=== PATIENT | female | born 1945 | race Caucasian/White ===

== ENCOUNTER 2019-06-25 23:24 | Emergency (ER) | payer OTHER, SELFPAY ==
[2019-06-25 23:55] VITALS: BP 149/86; PULSE 92; RESP 16; O2SAT 97
--- NOTE | 2019-06-26 00:03 | DI.RAD.S_ITS ---
PROCEDURE: XR CHEST 1V INDICATIONS: cough TECHNIQUE: One view of the chest was acquired. COMPARISON: Lung bases on CT abdomen and pelvis 10/27/2010. FINDINGS: Surgical changes and devices: None. Lungs and pleura: No consolidation. No pleural effusions or pneumothorax. Mediastinum: Mediastinal contours appear normal. Heart size is normal. Bones and chest wall: No suspicious bony lesions. Overlying soft tissues appear unremarkable. IMPRESSION: No acute cardiopulmonary abnormality. This report is concordant with the overnight preliminary interpretation. Dictated by: Miguel Brannon M.D. on 06/26/2019 at 7:42 Approved by: Miguel Brannon M.D. on 06/26/2019 at 7:43
[2019-06-26 00:28] LABS: Influenza A and B by PCR Rapid Negative (Negative)
--- NOTE | 2019-06-26 02:09 | ED.URI ---
HPI - URI/Sore Throat General Chief Complaint: Upper Respiratory Symptoms Stated Complaint: coughing/hard to breath Time Seen by Provider: 06/26/19 01:50 Source: patient Mode of arrival: Ambulatory Limitations: no limitations History of Present Illness HPI Narrative: Patient is a 74-year-old female who presents with nonproductive cough ongoing for about a week. She says that she does not 6 she has not had fever or productive cough. She says she lost her voice she has been using cough drops so much that she gave herself diarrhea. She has no abdominal pain. She says that the cough is worse whenever she lays down at night. She has not been able to get much sleep. She denies any shortness of breath. MD Complaint: cough Relieving factors: nothing Exacerbating factors: nothing Related Data Home Medications Medication Instructions Recorded Confirmed ASCORBIC ACID (VITAMIN C) 1,000 mg PO QDAY #0 12/18/12 CA PANTOTHENATE/FOLIC ACID/VIT 1 tab PO QDAY #0 12/18/12 (MULTIVITAMIN) Fish Oil (Fish Oil 500 MG Softgel) 500 mg PO QDAY #0 12/18/12 LEVOTHYROXINE SODIUM (LEVOTHROID) 0.05 mg PO QDAY #0 12/18/12 VITAMIN D (Vitamin D3) 1,000 unit PO QDAY #0 12/18/12 Previous Rx's Medication Instructions Recorded prednisone 40 mg PO DAILY #10 tab 06/26/19 Allergies Allergy/AdvReac Type Severity Reaction Status Date / Time No Known Drug Allergies Allergy Verified 06/25/19 23:57 Review of Systems Review of Systems Narrative: GENERAL: Denies chills, fatigue, malaise, fever, sweats, travel HEENT: Denies sinus pain, ear pain, sore throat, difficulty swallowing, neck pain RESPIRATORY: See HPI CARDIOVASCULAR: Denies chest pain, palpitations, orthopnea, edema GASTROINTESTINAL: Denies nausea, vomiting, abdominal pain, diarrhea, constipation, melena. : Denies dysuria, frequency, incontinence, hematuria, urinary retention, flank pain. MUSCULOSKELETAL: Denies weakness, joint pain, or bony pain SKIN: No rash, no erythema, no pruritus NEUROLOGIC: Denies weakness, dizziness, headache, numbness, change in speech, confusion PSYCHIATRIC: No concerning psychosocial issues. 12 point review of systems is negative except for those stated above and HPI Patient History Medical History Hypothyroid (Acute) Social History Smoking Status: Never smoker Social History Smoking Status: Never smoker Substance Use Type: does not use Exam Initial Vital Signs Initial Vital Signs: Vital Signs Pulse Rate 92 H 06/25/19 23:55 Respiratory Rate 16 06/25/19 23:55 Blood Pressure 149/86 H 06/25/19 23:55 Pulse Oximetry 97 06/25/19 23:55 GENERAL: Well-appearing, well-nourished and in no acute distress. HEENT: Head atraumatic,EOMI, pupils reactive, face symmetric, moist mucous membranes CARDIOVASCULAR: Regular rate and rhythm without murmurs, rubs or gallops. RESPIRATORY: Breath sounds equal bilaterally, no wheezes rales or rhonchi. ABDOMEN: Soft, nontender. Normoactive bowel sounds all 4 quadrants. No guarding or rebound. EXTREMITIES: Normal range of motion, no clubbing or edema. Neurovascularly intact NEUROLOGICAL: Alert and oriented x4.Normal gait and speech. Cranial nerves II through XII grossly intact. SKIN: Warm, dry, no laceration, no petechiae, no rashes or lesions. Course Orders Ordered: ED Orders 06/26/19 00:03 XR chest 1V Stat 06/26/19 00:05 Influenza A and B by PCR Rapid Stat Discontinued Medications Albuterol (Ventolin Hfa Prepack) 1 box [facility] [place] SEEINSTR ONE Stop: 06/26/19 02:24 Last Admin: 06/26/19 02:41 Dose: 1 box Documented by: TSHARP Vital Signs Vital signs: Vital Signs - 8 hr 06/25/19 23:55 06/26/19 03:30 Pulse Rate 92 H 88 Respiratory Rate 16 18 Blood Pressure 149/86 H 139/80 Pulse Oximetry 97 98 MDM - URI/Sore Throat Lab Data Labs: Lab Results 06/26/19 Range/Units 00:05 Influenza A & B (PCR) Negative (Negative) Imaging Data Chest x-ray: My impression: No acute cardiopulmonary process MDM Narrative Medical decision making narrative: Is patient overall does not appear ill. No hypoxia shortness of breath speaks in full sentences. At this time likely viral syndrome. She is taught how to use albuterol inhaler and spacer. No indication for antibiotics at this time Discharge Plan Departure Patient Disposition: Home Clinical Impression: Bronchitis Discharge Date/Time: 06/26/19 02:50 Instructions: DI for Acute Bronchitis Activity Restrictions/Additional Instructions: *You have been diagnosed with bronchitis *What to do: At this time no indication for antibiotics. This is likely viral and should clear Rahel. *Continue to take medications as directed Albuterol inhaler with spacer 2 puffs every 4 hours if needed for coughing spells or shortness of breath Prednisone 40 mg once a day for 5 days *Follow up with your primary care provider in 2-3 days *Return to ER if you should have increasing shortness of breath, chest pain or any new, worsening or concerning symptoms Prescriptions: New prednisone 20 mg tablet 40 mg PO DAILY Qty: 10 RF: 0 No Action ASCORBIC ACID (VITAMIN C) 1,000 mg PO QDAY Qty: 0 RF: 0 CA PANTOTHENATE/FOLIC ACID/VIT (MULTIVITAMIN) 1 tab PO QDAY Qty: 0 RF: 0 LEVOTHYROXINE SODIUM (LEVOTHROID) 0.05 mg PO QDAY Qty: 0 RF: 0 VITAMIN D (Vitamin D3) 1,000 unit PO QDAY Qty: 0 RF: 0 Fish Oil (Fish Oil 500 MG Softgel) 500 mg PO QDAY Qty: 0 RF: 0
[2019-06-26] MEDS: ALBUTEROL HFA PREPACK 1 BOX MISC (02:41)
[2019-06-26 03:30] VITALS: BP 139/80; PULSE 88; RESP 18; O2SAT 98
== END 2019-06-26 02:50 | disposition home or self-care (01) ==
PROVIDERS: Emergency Provider Emergency Medicine
DX: J40 Bronchitis, not specified as acute or chronic (principal)
CPT/HCPCS: 71045; 87400; 87502; 99282; 99283

== ENCOUNTER 2019-12-12 08:01 | Emergency (ER) | payer MEDICARE, SELFPAY ==
--- NOTE | 2019-12-12 08:10 | ED_ITS ---
HPI - General Adult General Chief complaint: Extremity Injury, Lower Stated complaint: left knee pain/swelling x5 days Time Seen by Provider: 12/12/19 08:10 History of Present Illness HPI narrative: 74-year-old woman with a history of a right knee replacement presents with acute left knee pain. The last number of days she has been painting and going up and down a 3 step stepstool repeatedly. She has noticed an increase effusion in the left knee and increasing pain to the point that she is having difficulty walking. She still has full range of motion at the knee as long as there is no weight-bearing present. There is no redness, warmth or suggestion of infection. Because of the gait modifications she is making due to the knee pain she is now having more pain on the right side and then is that knee is hurting more she is experiencing more low back and right-sided hip pain as well. Related Data Home Medications Medication Instructions Recorded Confirmed ASCORBIC ACID (VITAMIN C) 1,000 mg PO QDAY #0 12/18/12 CA PANTOTHENATE/FOLIC ACID/VIT 1 tab PO QDAY #0 12/18/12 (MULTIVITAMIN) Fish Oil (Fish Oil 500 MG Softgel) 500 mg PO QDAY #0 12/18/12 LEVOTHYROXINE SODIUM (LEVOTHROID) 0.05 mg PO QDAY #0 12/18/12 VITAMIN D (Vitamin D3) 1,000 unit PO QDAY #0 12/18/12 Previous Rx's Medication Instructions Recorded prednisone 40 mg PO DAILY #10 tab 06/26/19 Allergies Allergy/AdvReac Type Severity Reaction Status Date / Time No Known Drug Allergies Allergy Verified 12/12/19 08:19 Review of Systems Review of Systems Narrative: Denies ? fever ? cough ? cold ? chills ? chest pain ? dyspnea ? orthopnea ? wheezing ? abdominal pain ? change to bowel or bladder habits ? nausea vomiting ? skin changes ? rashes Patient History Medical History Hypothyroid (Acute) Surgical History Status post right knee replacement (Inactive) Social History Smoking Status: Never smoker Smoking Status: Never smoker Substance Use Type: does not use Exam Narrative Exam Narrative: General: Alert appropriate in no acute distress Respiratory: Able to speak in full sentences, no obvious respiratory distress Skin: No obvious rashes, warm and dry Neurologic: Grossly intact no obvious asymmetries or abnormalities Psych, appropriate insight and affect, cooperative Extremity: Left knee with mild effusion, full minimally tender range of motion in that supine in examining position, slight fullness in the popliteal fossa suggesting a small Chapman cyst, medial and lateral collateral ligaments are stable, no anterior or posterior drawer signs appreciated. She is neurovascularly intact distally Initial Vital Signs Initial Vital Signs: Vital Signs Temperature 98.1 F 12/12/19 08:12 Pulse Rate 94 H 12/12/19 08:12 Respiratory Rate 16 12/12/19 08:12 Blood Pressure 203/98 H 12/12/19 08:12 Pulse Oximetry 98 12/12/19 08:12 [facility] Procedure Name of Procedure: Left knee intra-articular injection Side (if applicable): left Technique/Description of procedure performed: ARBC of procedure is reviewed in detail with patient and questions are answered 40 cc of Kenalog and 1.5 cc of 0.5% bupivacaine are injected using a sterile touch technique into the medial aspect of the left knee. Patient tolerated the procedure well. There is no bleeding. Did have some immediate relief as the local anesthetic was taking affect. Patient tolerated procedure: Well Complications: none Course Orders Ordered: Discontinued Medications Bupivacaine HCl (Sensorcaine 0.5%) 30 ml INJ NOW ONE Stop: 12/12/19 08:25 Last Admin: 12/12/19 08:31 Dose: Not Given Documented by: EUGENIO Bupivacaine HCl (Sensorcaine 0.5% (Pf)) 30 ml INJ INTRA-OP ONE Stop: 12/12/19 08:30 Last Admin: 12/12/19 09:21 Dose: 1.5 ml Documented by: EUGENIO Triamcinolone (Kenalog-40) 40 mg IM NOW ONE Stop: 12/12/19 08:25 Last Admin: 12/12/19 09:22 Dose: 40 mg Documented by: EUGENIO Vital Signs Vital signs: Vital Signs - 8 hr 12/12/19 09:40 12/12/19 10:16 Pulse Rate 76 72 Respiratory Rate 16 16 Blood Pressure 181/89 H Blood Pressure [Left Arm] 181/86 H Pulse Oximetry 97 98 Discharge Plan Departure Patient Disposition: Home Clinical Impression: Effusion of knee joint, left Chapman's cyst of knee Qualifiers: Laterality: left Qualified Code(s): M71.22 - Synovial cyst of popliteal space [Chapman], left knee Discharge Date/Time: 12/12/19 10:17 Instructions: DI for Chapman's Cyst, DI for Knee Sprain Activity Restrictions/Additional Instructions: I believe that the couple of days in going up and down the 3 stairs with the step stool and paining has exacerbated some baseline arthritis in your left knee. This has caused her body to respond by swelling and creating an effusion to protect the joint. I suspect that you may also have a small Chapman's cyst on that side that is been exacerbated as well. In the emergency room, we did a steroid injection using Kenalog and bupivacaine(a long-acting local anesthetic). I would expect to have some relief over the next 4-6 hours and then as the anesthetic wears off to have an increased fullness and within 12-24 hours the anti-inflammatory effects of the Kenalog should be kicking in and making a difference. Using 400 mg of ibuprofen (2 brdc-yqi-cvaluel pills) and 1 Tylenol every 6 hours can be very helpful in controlling pain. I respect your reasons for declining any additional narcotic pain medication I do recommend that you check the drug stores for a walker. I think that extra bit of stability and allowing your arms to help with mobility will take some of the strain off the right leg so that you are not going to developed more pain in the right knee and right hip. Ice is perfectly appropriate in okay to use. I would expect that this continues to improve over the next 6 weeks If you find that you are getting worse, develop any redness or warmth to suggest infection or develop new symptoms please return to the emergency room for further evaluation. If you find that you are still having pain and tenderness after 6 weeks I would recommend follow-up with either your primary care physician or your orthopedic surgeon of choice. Prescriptions: No Action ASCORBIC ACID (VITAMIN C) 1,000 mg PO QDAY Qty: 0 RF: 0 CA PANTOTHENATE/FOLIC ACID/VIT (MULTIVITAMIN) 1 tab PO QDAY Qty: 0 RF: 0 LEVOTHYROXINE SODIUM (LEVOTHROID) 0.05 mg PO QDAY Qty: 0 RF: 0 VITAMIN D (Vitamin D3) 1,000 unit PO QDAY Qty: 0 RF: 0 Fish Oil (Fish Oil 500 MG Softgel) 500 mg PO QDAY Qty: 0 RF: 0 prednisone 20 mg tablet 40 mg PO DAILY Qty: 10 RF: 0 Referrals: Flavia Whitley [Primary Care Provider] -
[2019-12-12 08:12] VITALS: BP 203/98; PULSE 94; RESP 16; TEMP 36.7; O2SAT 98
[2019-12-12] MEDS: BUPIVACAINE 0.5% (PF) VIAL 30 ML INJ (09:21)
[2019-12-12] MEDS: TRIAMCINOLONE 40 MG/ML VIAL IM (09:22)
[2019-12-12 09:40] VITALS: BP 181/86; PULSE 76; RESP 16; O2SAT 97
[2019-12-12 10:16] VITALS: BP 181/89; PULSE 72; RESP 16; O2SAT 98
== END 2019-12-12 10:17 | disposition home or self-care (01) ==
PROVIDERS: Emergency Provider Emergency Medicine; PCP Student in an Organized Health Care Education/Training Program
DX: M25.462 Effusion, left knee (principal); M71.22 Synovial cyst of popliteal space [Baker], left knee
CPT/HCPCS: 20610; 99281; 99283

== ENCOUNTER → 2020-09-16 10:01 | Outpatient (CLI) | payer OTHER, SELFPAY ==
--- NOTE | 2020-09-16 | DI.MG.S_ITS ---
BILATERAL DIGITAL SCREENING MAMMOGRAM 3D/2D WITH CAD: 09/16/2020 CLINICAL: Routine screening. Family history of breast cancer. Comparison is made to exams dated: 07/10/2017 mammogram - [facility], 06/16/2018 mammogram, and 07/19/2019 mammogram - outside location. There are scattered fibroglandular elements in both breasts. Current study was also evaluated with a Computer Aided Detection (CAD) system. No significant masses, calcifications, or other findings are seen in either breast. There has been no significant interval change. IMPRESSION: NEGATIVE There is no mammographic evidence of malignancy. A 1 year screening mammogram is recommended. This exam was interpreted at Station ID: [id number]. NOTE: For mammograms, a report in lay terms will be sent to the patient. Approximately 15% of breast malignancies will not be visualized mammographically. In the management of a palpable breast mass, a negative mammogram must not discourage biopsy of a clinically suspicious lesion. Electronically Signed By: Herbie jack/michelle:09/16/2020 10:31:48 letter sent: Normal Exam ACR BI-RADS Category 1: Negative [id number]
== END ==
PROVIDERS: PCP Student in an Organized Health Care Education/Training Program; Referring Provider Student in an Organized Health Care Education/Training Program; Visit Provider Student in an Organized Health Care Education/Training Program
DX: Z12.31 Encounter for screening mammogram for malignant neoplasm of breast (principal); Z80.3 Family history of malignant neoplasm of breast
CPT/HCPCS: 77063; 77067